=== PATIENT | male | born 1970 | race Two or more races ===

== ENCOUNTER 2017-12-15 22:08 | Emergency (ER) | payer BC, OTHER ==
[2017-12-15 22:17] VITALS: BP 133/67; PULSE 53; TEMP 97.6; BMI 31.4
--- NOTE | 2017-12-15 22:27 | PDOC ---
*Physical Exam - Vital Signs Last Vital Signs Temp Pulse Resp BP Pulse Ox 97.6 F 53 L 18 133/67 97 12/15/17 22:13 12/15/17 22:13 12/15/17 22:13 12/15/17 22:13 12/15/17 22:13 Medical Decision Making - Medical Decision Making 12/15/17 22:27 Pt seen by Midlevel Provider under my direct supervision 47 yo M with allergic reaction Unknown allergen No stridor, evidence of upper airway obstruction Will discharge on prednisone Follow up with ENT Return to the ER for any progression of symptoms I agree with plan as outlined by Midlevel Provider 12/15/17 23:16 *DC/Admit/Observation/Transfer Diagnosis at time of Disposition: Allergic reaction - Discharge Dispostion Disposition: HOME - Prescriptions Prescriptions: Famotidine [Pepcid -] 40 mg PO DAILY #14 tablet Loratadine [Claritin -] 10 mg PO DAILY #7 tablet Prednisone [Prednisone 50 MG TABLETS] 50 mg PO DAILY #3 tablet - Referrals - Patient Instructions Printed Discharge Instructions: DI for Hives Additional Instructions: take benadryl every 8 hours as needed for itching. this may make you sleepy. take prednisone as prescribed. take pepcid as prescribed. follow up with your doctor as soon as possible. Additional Instructions: * Please call your personal physician to report your Emergency Department visit and to report your progress, if any. * If there is no improvement in symptoms in 2 days call your physician. * Return to the Emergency Department for any worsening symptoms. - Post Discharge Activity
--- NOTE | 2017-12-15 22:29 | PDOC ---
History of Present Illness - General Chief Complaint: Allergic Reaction Stated Complaint: Allergic Reaction Time Seen by Provider: 12/15/17 22:26 History Source: Patient - History of Present Illness Initial Comments: 12/15/17 22:34 47 year old male c/o hives on and off since this morning with itchy feeling to thhroat. denies respiratory complaints or oral swelling. denies exposure to irritants, new products and new food. Past History - Past Medical History Allergies/Adverse Reactions: Allergies Allergy/AdvReac Type Severity Reaction Status Date / Time No Known Allergies Allergy Verified 12/15/17 22:17 Home Medications: Ambulatory Orders Cyclobenzaprine HCl [Flexeril -] 5 mg PO BID #7 tablet 12/22/15 Naproxen [Naprosyn -] 500 mg PO BID #14 tablet 12/22/15 Famotidine [Pepcid -] 40 mg PO DAILY #14 tablet 12/15/17 Loratadine [Claritin -] 10 mg PO DAILY #7 tablet 12/15/17 Prednisone [Prednisone 50 MG TABLETS] 50 mg PO DAILY #3 tablet 12/15/17 COPD: No - Suicide/Smoking/Psychosocial Hx Smoking History: Never smoked Have you smoked in the past 12 months: No Information on smoking cessation initiated: No Hx Alcohol Use: No Drug/Substance Use Hx: No Substance Use Type: None Review of Systems - Review of Systems Able to Perform ROS?: Yes Is the patient limited Maltese proficient: No Constitutional: No: Symptoms Reported, See HPI, Chills, Diaphoresis, Fever, Loss of Appetite, Malaise, Night Sweats, Weakness, Weight Stable, Unintentional Wgt. Loss, Unexplained wgt Loss, Other Respiratory: No: Symptoms reported, See HPI, Cough, Orthopnea, Shortness of Breath, SOB with Exertion, SOB at Rest, Stridor, Wheezing, Productive cough, Hemoptysis, Other *Physical Exam - Vital Signs Last Vital Signs Temp Pulse Resp BP Pulse Ox 97.6 F 53 L 18 133/67 97 12/15/17 22:13 12/15/17 22:13 12/15/17 22:13 12/15/17 22:13 12/15/17 22:13 - Physical Exam General Appearance: Yes: Appropriately Dressed HEENT: positive: Other (uvula midline) Respiratory/Chest: positive: Lungs Clear, Normal Breath Sounds Extremity: positive: Normal Capillary Refill, Other (hives to both arm, no oral swelling, ) Integumentary: positive: Normal Color, Dry, Warm Neurologic: positive: Fully Oriented, Alert, Normal Mood/Affect Progress Note - Progress Note Progress Note: allergic reaction P: prednisone, pepcid claritin *DC/Admit/Observation/Transfer Diagnosis at time of Disposition: Allergic reaction Qualifiers: Encounter type: initial encounter Qualified Code(s): T78.40XA - Allergy, unspecified, initial encounter - Discharge Dispostion Disposition: HOME - Prescriptions Prescriptions: Famotidine [Pepcid -] 40 mg PO DAILY #14 tablet Loratadine [Claritin -] 10 mg PO DAILY #7 tablet Prednisone [Prednisone 50 MG TABLETS] 50 mg PO DAILY #3 tablet - Referrals - Patient Instructions Printed Discharge Instructions: DI for Hives Additional Instructions: take benadryl every 8 hours as needed for itching. this may make you sleepy. take prednisone as prescribed. take pepcid as prescribed. follow up with your doctor as soon as possible. Additional Instructions: * Please call your personal physician to report your Emergency Department visit and to report your progress, if any. * If there is no improvement in symptoms in 2 days call your physician. * Return to the Emergency Department for any worsening symptoms. - Post Discharge Activity
[2017-12-15] MEDS ORDERED: LORATADINE 10 MG TABLET PO ONE (22:34)
[2017-12-15] MEDS ORDERED: RANITIDINE HCL 150 MG TABLET (FP) PO ONE (22:34)
[2017-12-15] MEDS ORDERED: predniSONE 20 MG TABLET (UD) PO ONE (22:34)
[2017-12-15] MEDS ORDERED: predniSONE 20 MG TABLET (UD) ONE (22:45)
[2017-12-15] MEDS ORDERED: RANITIDINE HCL 150 MG TABLET (FP) ONE (22:45)
[2017-12-15] MEDS ORDERED: LORATADINE 10 MG TABLET ONE (22:46)
== END 2017-12-16 00:23 | disposition home or self-care (01) ==
LOC: JER 22:08
DX: L50.0 Allergic urticaria (principal); T78.40XA Allergy, unspecified, initial encounter; X58.XXXA Exposure to other specified factors, initial encounter
CPT/HCPCS: 99282-25

== ENCOUNTER 2019-10-26 16:26 | Emergency (ER) | payer BC ==
[2019-10-26] MEDS ORDERED: DIPHTH,PERTUSS(ACELL),TET 0.5 ML DISP.SYRIN IM ONE ×2 (16:33→17:06)
--- NOTE | 2019-10-26 16:33 | PDOC ---
Rapid Medical Evaluation Time Seen by Provider: 10/26/19 16:31 Medical Evaluation: Allergies Allergy/AdvReac Type Severity Reaction Status Date / Time No Known Allergies Allergy Verified 12/15/17 22:17 10/26/19 16:31 CC: lac toleft forearm, unknown last tdap Exam: 4 cm lac to lat aspect of laeft wrist, FROM of joint Plan: tdap Discharge Disposition - Diagnosis Laceration - Referrals - Patient Instructions - Post Discharge Activity
[2019-10-26 16:38] VITALS: BP 138/87; PULSE 74; TEMP 97.7; BMI 29.8
--- NOTE | 2019-10-26 17:22 | PDOC ---
History of Present Illness - General Chief Complaint: Injury Stated Complaint: LT HAND LACERATION Time Seen by Provider: 10/26/19 16:31 History Source: Patient Exam Limitations: No Limitations - History of Present Illness Initial Comments: 10/26/19 17:19 49-year-old male brought in by EMS, ambidextrous denies past medical history presents complaining of injury to left forearm. States he was using an electrical cutting saw when he accidentally grazed his left forearm against it. EMS cleaned and dressed laceration. Unknown tetanus status, denies any other injuries. ROS: as above PE: GENERAL: well-appearing, NAD HEAD: NCAT EYES: Pupils equal, round and reactive to light, sclera anicteric, conjunctiva clear ENT: pharynx: no erythema, no exudate, uvula midline NECK: supple CHEST: nontender RESP: clear, no w/r/r CARDIO: rrr, no m/g/r ABD: +BS, soft, nontender, non distended EXTREMITIES: Normal range of motion NEUROLOGICAL: Normal speech, normal gait SKIN: Approximately 3.5 cm superficial laceration to lateral aspect of left forearm, no active bleeding noted, 5/5 strength and sensation 10/26/19 18:04 Is this a multiple visit Asthma Patient?: No Past History - Medical History Allergies/Adverse Reactions: Allergies Allergy/AdvReac Type Severity Reaction Status Date / Time No Known Allergies Allergy Verified 10/26/19 16:34 Home Medications: Ambulatory Orders Cyclobenzaprine HCl [Flexeril -] 5 mg PO BID #7 tablet 12/22/15 Naproxen [Naprosyn -] 500 mg PO BID #14 tablet 12/22/15 Famotidine [Pepcid -] 40 mg PO DAILY #14 tablet 12/15/17 Loratadine [Claritin -] 10 mg PO DAILY #7 tablet 12/15/17 Prednisone [Prednisone 50 MG TABLETS] 50 mg PO DAILY #3 tablet 12/15/17 COPD: No - Psycho-Social/Smoking History Smoking History: Never smoked Have you smoked in the past 12 months: No Information on smoking cessation initiated: No - Substance Abuse Hx (Audit-C & DAST Scrn) How often the patient has a drink containing alcohol: Never Score: In Men: 4 or > Positive; In Women: 3 or > Positive: 0 Screen Result (Pos requires Nsg. Audit-10AR): Negative In the last yr the pt used illegal drug/Rx for NonMed reason: No Score: Yes response is considered Positive: 0 Screen Result (Positive result requires Nsg. DAST-10): Negative *Physical Exam - Vital Signs Last Vital Signs Temp Pulse Resp BP Pulse Ox 97.7 F 74 19 138/87 99 10/26/19 16:32 10/26/19 16:32 10/26/19 16:32 10/26/19 16:32 10/26/19 16:32 Procedures - Laceration/Wound Repair Left Anterior Arm Wound Length: 2.6 to 5.0 cm Wound Explored: clean Wound's Depth, Shape: superficial, linear Betadine Prep: Yes Anesthesia: 1% Lidocaine Wound Repaired With: Sutures Suture Size/Type: 4:0, nylon Number of Sutures: 5 Sterile Dressing Applied: Yes Splint Applied: No ED Treatment Course - Medications Given in the ED: ED Medications Discontinued Medications Generic Name Dose Route Start Last Admin Trade Name Freq PRN Reason Stop Dose Admin Diphtheria/Tetanus/Acell Pertussis 0.5 ml 10/26/19 16:33 10/26/19 17:07 Boostrix - IM 10/26/19 16:34 0.5 ml .ONCE ONE Administration Medical Decision Making - Medical Decision Making 10/26/19 17:21 49-year-old male brought in by EMS, ambidextrous denies past medical history presents complaining of injury to left forearm. States he was using an electrical cutting saw when he accidentally grazed his left forearm against it. EMS cleaned and dressed laceration. Unknown tetanus status, denies any other in juries. Tetanus given today Left forearm laceration repaired Sterile dressing applied Return to ED in 7 days for suture removal 10/26/19 18:05 Discharge - Discharge Information Problems reviewed: Yes Clinical Impression/Diagnosis: Laceration Condition: Stable Disposition: HOME - Admission No - Follow up/Referral Referrals: Rodolfo Snider MD [Primary Care Provider] - - Patient Discharge Instructions Additional Instructions: Keep area clean and dry Apply bacitracin to area twice a day You may remove your dressing in 24 hours, clean with soap and warm water, dab dry Return to ED in 7 days for suture removal If you develop pain, swelling, drainage from wound return to ED sooner Take ibuprofen 600 mg every 6 hours as needed for pain - Post Discharge Activity
== END 2019-10-26 18:12 | disposition home or self-care (01) ==
LOC: JERFT 16:26 → JER 16:26 → JERFT 18:12
PROC: 0HQEXZZ Repair Left Lower Arm Skin, External Approach (ICD-10-PCS; principal; 2019-10-26)
PROC: 3E0234Z Introduction of Serum, Toxoid and Vaccine into Muscle, Percutaneous Approach (ICD-10-PCS; principal; 2019-10-26)
DX: S51.812A Laceration without foreign body of left forearm, initial encounter (principal); W26.8XXA Contact with other sharp object(s), not elsewhere classified, initial encounter
CPT/HCPCS: 90715; 99282-25

== ENCOUNTER 2020-05-07 20:02 | Emergency (ER) | payer BC ==
[2020-05-07 20:07] VITALS: BP 133/91; PULSE 67; TEMP 97.5; BMI 31.0
[2020-05-07 20:59] LABS: BASO % 0.9 % (0-2.0); EOS % 1.3 % (0-4.5); HEMATOCRIT 41.8 % (35.4-49); HEMOGLOBIN 14.1 GM/dL (11.7-16.9); LYMPH % 37.6 % (8-40); MCH 31.5 pg (25.7-33.7); MCHC 33.8 g/dl (32.0-35.9); MEAN CELL VOLUME 93.1 fl (80-96); MEAN PLT VOLUME 8.3 fl (7.5-11.1); MONO % 12.5 % (3.8-10.2); NEUT % 47.7 % (42.8-82.8); PLATELET COUNT 213 K/MM3 (134-434); RBC 4.49 M/mm3 (4.00-5.60); RDW 12.8 % (11.9-15.9); WHITE BLOOD COUNT 6.9 K/mm3 (4.0-10.0)
[2020-05-07 21:15] LABS: CHLORIDE 109 mmol/L (98-107); SODIUM 143 mmol/L (136-145)
[2020-05-07 21:17] LABS: CALCIUM 8.6 mg/dL (8.5-10.1)
[2020-05-07 21:18] LABS: ALBUMIN 3.5 g/dl (3.4-5.0); ANION GAP 6 MMOL/L (8-16); BLOOD UREA NITROGEN 16.8 mg/dL (7-18); CO2 28 mmol/L (21-32); GLUCOSE,RANDOM 118 mg/dL (74-106)
[2020-05-07 21:21] LABS: CREATININE 1.1 mg/dL (0.55-1.3); SGOT/AST 26 U/L (15-37); SGPT/ALT 23 U/L (13-61)
[2020-05-07 21:22] LABS: BILIRUBIN,TOTAL 0.4 mg/dL (0.2-1)
[2020-05-07 21:23] LABS: ALK PHOS 81 U/L (45-117)
== END 2020-05-07 21:34 | disposition home or self-care (01) ==
LOC: JER 20:02
DX: R07.9 Chest pain, unspecified (principal)
CPT/HCPCS: 36415; 71046-TC-FY; 80053; 82550; 82553; 84484; 85025; 93005; 93010; 99284-25

== ENCOUNTER 2022-02-02 01:52 | Emergency (ER) | payer BC, OTHER ==
[2022-02-02 02:08] VITALS: RESP 20; BMI 30.7
[2022-02-02 02:37] VITALS: BP 147/95; PULSE 57; TEMP 97.7
[2022-02-02] MEDS ORDERED: ASPIRIN 81 MG CHEWABLE TABLETS PO ONE (03:48)
[2022-02-02 04:31] LABS: BASO % 0.6 % (0-2.0); EOS % 4.2 % (0-4.5); HEMATOCRIT 43.4 % (35.4-49); LYMPH % 32.1 % (8-40); MCH 31.9 pg (25.7-33.7); MCHC 34.7 g/dl (32.0-35.9); MEAN PLT VOLUME 7.8 fl (7.5-11.1); NEUT % 53.1 % (42.8-82.8); PLATELET COUNT 230 10^3/uL (134-434); RBC 4.71 M/mm3 (4.00-5.60); RDW 12.6 % (11.9-15.9); WHITE BLOOD COUNT 7.9 K/mm3 (4.0-10.0)
[2022-02-02 04:39] LABS: INR 1.03 (0.83-1.09); PROTHROMBIN TIME (PATIENT) 11.8 SEC (9.7-13.0)
[2022-02-02 04:42] LABS: ACTIVATED PTT 30.1 SECONDS (25.2-36.5)
[2022-02-02 04:52] LABS: ALBUMIN 3.8 g/dl (3.4-5.0); BLOOD UREA NITROGEN 18.5 mg/dL (7-18)
[2022-02-02 04:55] LABS: CREATININE 0.9 mg/dL (0.55-1.3)
[2022-02-02 04:57] LABS: BILIRUBIN,TOTAL 0.3 mg/dL (0.2-1); TOT PROT 7.2 g/dl (6.4-8.2)
[2022-02-02] MEDS ORDERED: ASPIRIN 81 MG CHEWABLE TABLETS ONE (05:14)
== END 2022-02-02 05:28 | disposition left against medical advice (07) ==
LOC: JER 01:52
DX: R07.9 Chest pain, unspecified (principal); I10 Essential (primary) hypertension
CPT/HCPCS: 0241U-QW; 36415; 71046-TC-FY; 80053; 83690; 84484; 85025; 85610; 85730; 93005; 93010; 99284-25

== ENCOUNTER 2022-06-16 22:20 | Emergency (ER) | payer OTHER ==
[2022-06-16 22:39] VITALS: BP 156/96; PULSE 61; RESP 18; TEMP 97.6; BMI 30.5
== END 2022-06-17 00:13 | disposition home or self-care (01) ==
LOC: JER 22:20
DX: I10 Essential (primary) hypertension (principal)
CPT/HCPCS: 93005; 93010; 99283-25